=== PATIENT | female | born 2000 | race Caucasian/White ===

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

== ENCOUNTER 2018-01-05 11:57 | Emergency (ER) | payer MEDICAID ==
[~2018-01-05] VITALS: Ht 152.4 cm; Wt 78.9 kg
[2018-01-05 12:23] VITALS: BP 133/74
--- NOTE | 2018-01-05 12:30 | NUR ---
patient to lobby awaiting available room
--- NOTE | 2018-01-05 14:05 | NUR ---
PT AMBULATED TO BED 5. IN GOWN AND WAITING IN ROOM FOR
--- NOTE | 2018-01-05 14:08 | NUR ---
17/F with c/o suprapubic pain radiating to bl lower back x last night. Patient sts she is 15 weeks . LMP 08/14/17. . Patient also report of dysuria. Patient denies any vaginal bleeding. Patient had ultrasound done approx 4 wks ago. DENIES V/D; SKIN IS PINK/WARM/DRY; AAOX4 WITH EVEN AND STEADY GAIT; LUNGS CLEAR BL; PT DENIES ANY FEVER, CP, SOB, OR COUGH AT THIS TIME; PATIENT STATES PAIN OF 7/10 AT THIS TIME. PATIENT POSITIONED FOR COMFORT; HOB ELEVATED; BEDRAILS UP X2; BED DOWN. ER MD MADE AWARE OF PT STATUS.
[2018-01-05 15:38] LABS: BASOPHILS # (AUTO) 0.1 K/uL (0.00-0.22); BASOPHILS % (AUTO) 0.4 % (0.0-2.0); EOSINOPHILS # (AUTO) 0.1 K/uL (0-0.4); EOSINOPHILS % (AUTO) 0.5 % (0.0-4.0); HEMATOCRIT 34.8 % (36-48); HEMOGLOBIN 11.9 g/dL (12.0-16.0); LYMPHOCYTES # (AUTO) 2.7 K/uL (2.5-16.5); LYMPHOCYTES % (AUTO) 21.1 % (20.5-51.1); MEAN CORPUSCULAR HEMOGLOBIN 31 pg (27-31); MEAN CORPUSCULAR HGB CONC 34 g/dL (33-37); MEAN CORPUSCULAR VOLUME 89.5 fL (80-94); MONOCYTES # (AUTO) 1.1 K/uL (0.8-1.0); MONOCYTES % (AUTO) 8.8 % (1.7-9.3); NEUTROPHILS # (AUTO) 8.8 K/uL (1.8-7.7); NEUTROPHILS % (AUTO) 69.2 % (42.2-75.2); PLATELET COUNT (AUTO) 196 K/uL (140-450); RED BLOOD CELL COUNT(AUTO) 3.89 MIL/uL (4.20-5.40); RED CELL DISTRIBUTION WIDTH 13.3 % (11.6-13.7); WHITE BLOOD COUNT (AUTO) 12.8 K/uL (4.5-11.0)
--- NOTE | 2018-01-05 16:17 | NUR ---
Patient appears to be resting comfortably in bed. Vital Signs within normal limits. Respirations even and unlabored.WILL CONTINUE TO MONITOR.
--- NOTE | 2018-01-05 16:17 | NUR ---
FAMILY AT BEDSIDE.
[2018-01-05 16:22] LABS: APPEARANCE,URINE HAZY (CLEAR); COLOR,URINE YELLOW (YELLOW)
[2018-01-05 16:23] LABS: BILIRUBIN,URINE NEGATIVE (NEGATIVE); BLOOD, URINE NEGATIVE (NEGATIVE); LEUKOCYTE ESTERASE ,URINE TRACE (NEGATIVE); NITRITE, URINE NEGATIVE (NEGATIVE); UGLUCOSE NEGATIVE (NEGATIVE)
[2018-01-05 16:33] LABS: RBC,URINE NONE SEEN /HPF (0-5); URINE AMORPHOUS URATE 2+ /HPF (None Seen); WBC,URINE 0-5 (RARE) /HPF (0-5)
[2018-01-05 16:38] VITALS: BP 105/57
== END 2018-01-05 16:38 | disposition home or self-care (01) ==
LOC: MED 11:57
DX: O26.892 Other specified pregnancy related conditions, second trimester (principal); R10.30 Lower abdominal pain, unspecified; Z3A.17 17 weeks gestation of pregnancy
CPT/HCPCS: 36415; 76805; 81001; 81025; 84702; 85025; 86900; 86901; 99285

== ENCOUNTER 2019-10-11 12:50 | Emergency (ER) | payer MEDICAID, OTHER ==
[~2019-10-11] VITALS: Ht 156.2 cm; Wt 89.5 kg
[2019-10-11 12:56] VITALS: BP 119/86
--- NOTE | 2019-10-11 13:11 | NUR ---
O INTERMITENT LEFT LOWER ABMINAL CRAMPING & VAGINAL BLEEDING X YESTERDAY. LMP 07/22/19.PT AWAKE , ALERT , AFIBRILE , AMBULATORY WITH STEADY GAIT. PINK PALPEBRAL CONJUNCTIVAE , ANICTERIC SCLERA, SCE , CBS , ROUND SOFT NABS NONTENDER ABDOMEN. MED HX: DENIES
--- NOTE | 2019-10-11 13:14 | NUR ---
PT COMFORTABLE IN BED , AWAKE , ALERT , SIDE RAILS UP X 1 AND LOCK.
--- NOTE | 2019-10-11 13:15 | NUR ---
DR LIMON AT BEDSIDE EVALUATING PT.
[2019-10-11 13:53] LABS: BASOPHILS % (AUTO) 0.4 % (0.0-2.0); EOSINOPHILS # (AUTO) 0.1 K/uL (0-0.4); EOSINOPHILS % (AUTO) 0.6 % (0.0-4.0); HEMATOCRIT 39.1 % (36-48); HEMOGLOBIN 12.9 g/dL (12.0-16.0); LYMPHOCYTES # (AUTO) 2.5 K/uL (2.5-16.5); LYMPHOCYTES % (AUTO) 30.3 % (20.5-51.1); MEAN CORPUSCULAR HEMOGLOBIN 30 pg (27-31); MEAN CORPUSCULAR HGB CONC 33 g/dL (33-37); MONOCYTES # (AUTO) 0.5 K/uL (0.8-1.0); MONOCYTES % (AUTO) 6.2 % (1.7-9.3); NEUTROPHILS # (AUTO) 5.2 K/uL (1.8-7.7); NEUTROPHILS % (AUTO) 62.5 % (42.2-75.2); PLATELET COUNT (AUTO) 201 K/uL (140-450); RED BLOOD CELL COUNT(AUTO) 4.34 MIL/uL (4.20-5.40); RED CELL DISTRIBUTION WIDTH 14.5 % (11.6-13.7); WHITE BLOOD COUNT (AUTO) 8.3 K/uL (4.8-10.8)
--- NOTE | 2019-10-11 14:20 | NUR ---
DR LIMON AT BEDSIDE REEVALUATING PT.
[2019-10-11 14:27] LABS: ALBUMIN 3.3 g/dL (3.4-5.0); ANION GAP 9.5 (8-16); CARBON DIOXIDE 28.9 mmol/L (21-32); CREATININE 0.8 mg/dL (0.6-1.3); POTASSIUM 4.4 mmol/L (3.5-5.1); TOTAL BILIRUBIN 0.3 mg/dL (0.0-1.0)
[2019-10-11 14:57] VITALS: BP 121/78
== END 2019-10-11 14:56 | disposition home or self-care (01) ==
LOC: MED 12:50
DX: N92.0 Excessive and frequent menstruation with regular cycle (principal)
CPT/HCPCS: 36415; 76856; 80053; 81025; 84702; 85025; 93976; 99284; Q0092

== ENCOUNTER 2020-09-19 05:34 | Day surgery (SDC) | payer OTHER, SELFPAY ==
[~2020-09-19] VITALS: Ht 152.4 cm; Wt 90.7 kg
[2020-09-19] MEDS ORDERED: BUPIVACAINE-MPF 0.25% 30 ML VIAL INJ ONE (07:10)
[2020-09-19] MEDS ORDERED: KETOROLAC 30 MG/ML VIAL ONE (07:26)
[2020-09-19] MEDS ORDERED: SEVOFLURANE 250 ML BTL INH ONE (07:26)
[2020-09-19] MEDS ORDERED: LIDOCAINE 2% 100 MG/5 ML SYR IVP ONE (07:26)
[2020-09-19] MEDS ORDERED: ONDANSETRON 4 MG/2 ML VIAL ONE (07:26)
[2020-09-19] MEDS ORDERED: GLYCOPYRROLATE 0.2 MG/ML VIAL ONE (07:26)
[2020-09-19] MEDS ORDERED: SUCCINYLCHOLINE CHLORIDE 200 MG/10 ML VIAL IVP ONE (07:26)
[2020-09-19] MEDS ORDERED: NEOSTIGMINE 1:1000 10 MG/10 ML VIAL ONE (07:26)
[2020-09-19] MEDS ORDERED: ROCURONIUM 50 MG/5 ML VIAL IV ONE (07:26)
[2020-09-19] MEDS ORDERED: fentaNYL citrate 0.05 MG/ML VIAL ONE (07:26)
[2020-09-19] MEDS ORDERED: PROPOFOL 200 MG/20 ML VIAL IV ONE (07:26)
[2020-09-19] MEDS ORDERED: DEXAMETHASONE 4 MG/ML VIAL ONE (07:26)
[2020-09-19] MEDS ORDERED: METOCLOPRAMIDE 10 MG/2 ML INJ VIAL ONE (07:26)
[2020-09-19] MEDS ORDERED: LACTATED RINGERS 1,000 ML IV SCH (08:10)
[2020-09-19] MEDS ORDERED: MEPERIDINE 25 MG/ML SYR IVP PRN (08:10)
[2020-09-19] MEDS ORDERED: ONDANSETRON 4 MG/2 ML VIAL IVP PRN (08:10)
[2020-09-19] MEDS ORDERED: diphenhydrAMINE 50 MG/ML VIAL IVP PRN (08:10)
[2020-09-19] MEDS ORDERED: fentaNYL citrate 0.05 MG/ML VIAL IVP PRN (08:10)
[2020-09-19] MEDS ORDERED: HYDROcodone/APAP 5/325 MG 1 TAB TAB PO PRN (08:10)
== END 2020-09-19 10:51 | disposition home or self-care (01) ==
LOC: MDS 05:34 → MMU 06:22 → MDS 10:51
PROVIDERS: ATTEND Obstetrics & Gynecology
DX: N80.0 Endometriosis of uterus (principal); Z20.828 Contact with and (suspected) exposure to other viral communicable diseases
CPT/HCPCS: 36415; 58662; 81025; 82374; 86886; 86900; 86901; J0330; J1100; J1885; J2001; J2175; J2405; J2704; J2710; J2765; J3010; J3490; J7120; U0003

== ENCOUNTER 2022-02-03 16:06 | Emergency (ER) | payer OTHER ==
[~2022-02-03] VITALS: Ht 154.9 cm; Wt 89.8 kg
[2022-02-03 16:31] VITALS: BP 133/82
[2022-02-03] MEDS ORDERED: KETOROLAC 30 MG/ML VIAL IM ONE (17:00)
[2022-02-03] MEDS ORDERED: MORPHINE SULFATE 2 MG/ML SYR IM STA (17:00)
--- NOTE | 2022-02-03 17:05 | NUR ---
lab at bedside
[2022-02-03 17:14] LABS: BASOPHILS % (AUTO) 0.2 % (0.0-2.0); EOSINOPHILS # (AUTO) 0.1 K/uL (0-0.4); EOSINOPHILS % (AUTO) 0.8 % (0.0-4.0); HEMATOCRIT 38.7 % (36-48); HEMOGLOBIN 12.7 g/dL (12.0-16.0); LYMPHOCYTES # (AUTO) 2.6 K/uL (2.5-16.5); LYMPHOCYTES % (AUTO) 21.4 % (20.5-51.1); MEAN CORPUSCULAR HEMOGLOBIN 29 pg (27-31); MEAN CORPUSCULAR HGB CONC 33 g/dL (33-37); MONOCYTES % (AUTO) 8.2 % (1.7-9.3); NEUTROPHILS # (AUTO) 8.4 K/uL (1.8-7.7); NEUTROPHILS % (AUTO) 69.4 % (42.2-75.2); PLATELET COUNT (AUTO) 236 K/uL (140-450); RED BLOOD CELL COUNT(AUTO) 4.35 MIL/uL (4.20-5.40); RED CELL DISTRIBUTION WIDTH 13.7 % (11.6-13.7); WHITE BLOOD COUNT (AUTO) 12.1 K/uL (4.8-10.8)
[2022-02-03 17:28] LABS: ALBUMIN 3.5 g/dL (3.4-5.0); ANION GAP 11.2 (8-16); CARBON DIOXIDE 25.4 mmol/L (21-32); CREATININE 0.8 mg/dL (0.6-1.3); POTASSIUM 3.6 mmol/L (3.5-5.1); TOTAL BILIRUBIN 0.2 mg/dL (0.0-1.0)
--- NOTE | 2022-02-03 17:30 | NUR ---
22 y/o female c/o vaginal bleeding x 3 days, saturating 1 pad every 2 hours. Denies injury or trauma. Pelvic pain rated at 9/10, radiates to lower back, x last night. Took tylenol without relief. Pt reports history of PCOS and Endometriosis for which she was prescribed Megestrol 40mg 1+ year ago and has taken on and off x 1 year and consistently last 3 weeks. States LMP in October 2021. Denies fever, chills, NVD, dysuria, blood in stool.
[2022-02-03] MEDS ORDERED: ACET-8386 PO ×2 (18:45→18:47)
[2022-02-03] MEDS ORDERED: IBUP-1842 PO (18:45)
[2022-02-03] MEDS ORDERED: NITR100C7 PO (18:50)
[2022-02-03 19:15] VITALS: BP 131/65
--- NOTE | 2022-02-03 19:15 | NUR ---
Patient discharged with v/s stable. Written and verbal after care instructions about Dysmenorrhea given and explained. Patient alert, oriented and verbalized understanding of instructions. Ambulatory with steady gait. All questions addressed prior to discharge. ID band removed. Patient advised to follow up with PMD. Rx of [place], Macrobid, Motrin given. Patient educated on indication of medication including possible reaction and side effects. Opportunity to ask questions provided and answered.
== END 2022-02-03 19:15 | disposition home or self-care (01) ==
LOC: MED 16:06
DX: N94.6 Dysmenorrhea, unspecified (principal); N80.9 Endometriosis, unspecified; N92.0 Excessive and frequent menstruation with regular cycle
CPT/HCPCS: 36415; 80053; 81002; 81025; 85025; 96372; 99284; J1885; J2270

== ENCOUNTER 2023-02-24 21:23 | Emergency (ER) | payer OTHER ==
[~2023-02-24] VITALS: Ht 154.9 cm; Wt 81.6 kg
[~2023-02-24 21:23] MED LIST: ACET-8905 PO; IBUP-1842 PO; NITR100C7 PO
[2023-02-24 22:06] VITALS: BP 117/77; PULSE 59; RESP 20; TEMP 98; O2SAT 97
[2023-02-24 23:09] LABS: BASOPHILS # (AUTO) 0.1 K/uL (0.00-0.22); BASOPHILS % (AUTO) 0.7 % (0.0-2.0); EOSINOPHILS # (AUTO) 0.3 K/uL (0-0.4); EOSINOPHILS % (AUTO) 2.2 % (0.0-4.0); HEMATOCRIT 38.8 % (36-48); HEMOGLOBIN 13.1 g/dL (12.0-16.0); LYMPHOCYTES # (AUTO) 2.2 K/uL (2.5-16.5); LYMPHOCYTES % (AUTO) 17.4 % (20.5-51.1); MEAN CORPUSCULAR HEMOGLOBIN 30 pg (27-31); MEAN CORPUSCULAR HGB CONC 34 g/dL (33-37); MONOCYTES # (AUTO) 0.8 K/uL (0.8-1.0); MONOCYTES % (AUTO) 6.2 % (1.7-9.3); NEUTROPHILS # (AUTO) 9.5 K/uL (1.8-7.7); NEUTROPHILS % (AUTO) 73.5 % (42.2-75.2); PLATELET COUNT (AUTO) 212 K/uL (140-450); RED BLOOD CELL COUNT(AUTO) 4.41 MIL/uL (4.20-5.40); RED CELL DISTRIBUTION WIDTH 14.9 % (11.6-13.7); WHITE BLOOD COUNT (AUTO) 12.9 K/uL (4.8-10.8)
[2023-02-24 23:16] LABS: ALBUMIN 3.6 g/dL (3.4-5.0); ANION GAP 11.4 (8-16); CALCIUM 8.9 mg/dL (8.5-10.1); CARBON DIOXIDE 29.8 mmol/L (21-32); CREATININE 0.9 mg/dL (0.6-1.3); POTASSIUM 5.2 mmol/L (3.5-5.1); TOTAL BILIRUBIN 0.2 mg/dL (0.0-1.0)
[2023-02-25] MEDS ORDERED: PANTOPRAZOLE 40 MG TABEC PO ONE (01:35)
[2023-02-25] MEDS ORDERED: KETOROLAC 30 MG/ML VIAL IM ONE (01:35)
[2023-02-25] MEDS ORDERED: ONDANSETRON 4 MG ODT PO ONE (01:35)
[2023-02-25] MEDS ORDERED: DICYCLOMINE 10 MG CAP PO ONE (01:35)
[2023-02-25] MEDS ORDERED: IBUP-2213 PO (02:37)
[2023-02-25] MEDS ORDERED: ONDA-188 PO (02:37)
[2023-02-25] MEDS ORDERED: PANT40EC PO (02:37)
== END 2023-02-25 02:53 | disposition home or self-care (01) ==
LOC: MED 21:23
DX: R10.11 Right upper quadrant pain (principal); Z79.899 Other long term (current) drug therapy
CPT/HCPCS: 36415; 80053; 81025; 83690; 85025; 96372; 99284; J1885; Q0162

== ENCOUNTER 2023-04-15 02:39 | Emergency (ER) | payer OTHER ==
[~2023-04-15] VITALS: Ht 154.9 cm; Wt 85.3 kg
[~2023-04-15 02:39] MED LIST changes: +IBUP-2213 PO; +ONDA-188 PO; +PANT40EC PO
[2023-04-15 02:48] VITALS: BP 123/93; PULSE 64; RESP 18; TEMP 96.5; O2SAT 100
[2023-04-15] MEDS ORDERED: NACL 0.9% 1,000 ML IV ONE (03:05)
[2023-04-15] MEDS ORDERED: MORPHINE SULFATE 4 MG/ML SYR IVP ONE (03:05)
[2023-04-15 03:20] LABS: BASOPHILS % (AUTO) 0.4 % (0.0-2.0); EOSINOPHILS # (AUTO) 0.3 K/uL (0-0.4); EOSINOPHILS % (AUTO) 2.9 % (0.0-4.0); HEMATOCRIT 38.6 % (36-48); HEMOGLOBIN 12.9 g/dL (12.0-16.0); LYMPHOCYTES # (AUTO) 3.9 K/uL (2.5-16.5); LYMPHOCYTES % (AUTO) 35.7 % (20.5-51.1); MEAN CORPUSCULAR HEMOGLOBIN 30 pg (27-31); MEAN CORPUSCULAR HGB CONC 33 g/dL (33-37); MEAN CORPUSCULAR VOLUME 88.5 fL (80-94); MONOCYTES # (AUTO) 0.9 K/uL (0.8-1.0); MONOCYTES % (AUTO) 8.2 % (1.7-9.3); NEUTROPHILS # (AUTO) 5.7 K/uL (1.8-7.7); NEUTROPHILS % (AUTO) 52.8 % (42.2-75.2); PLATELET COUNT (AUTO) 224 K/uL (140-450); RED BLOOD CELL COUNT(AUTO) 4.36 MIL/uL (4.20-5.40); RED CELL DISTRIBUTION WIDTH 14.1 % (11.6-13.7); WHITE BLOOD COUNT (AUTO) 10.9 K/uL (4.8-10.8)
[2023-04-15 03:40] LABS: ALBUMIN 3.6 g/dL (3.4-5.0); ANION GAP 9.9 (8-16); CALCIUM 9.3 mg/dL (8.5-10.1); CARBON DIOXIDE 29.2 mmol/L (21-32); CREATININE 0.7 mg/dL (0.6-1.3); POTASSIUM 4.1 mmol/L (3.5-5.1); TOTAL BILIRUBIN 0.3 mg/dL (0.0-1.0); TOTAL PROTEIN, SERUM 7.9 g/dL (6.4-8.2)
[2023-04-15 03:41] VITALS: BP 116/72; PULSE 61; RESP 18; O2SAT 96
== END 2023-04-15 05:10 | disposition home or self-care (01) ==
LOC: MED 02:39
DX: K80.20 Calculus of gallbladder without cholecystitis without obstruction (principal); Z79.899 Other long term (current) drug therapy
CPT/HCPCS: 36415; 76700; 80053; 83690; 85025; 96361; 96374; 99285; J2270

== ENCOUNTER 2023-07-21 06:02 | Inpatient (IN) | payer OTHER ==
[~2023-07-21] VITALS: Ht 154.9 cm; Wt 90.0 kg
[2023-07-21] MEDS ORDERED: ceFAZolin 1,000 MG VIAL ONE ×2 (07:52→08:32)
[2023-07-21] MEDS ORDERED: BUPIVACAINE-MPF 0.25% 30 ML VIAL INJ ONE (07:52)
[2023-07-21] MEDS ORDERED: NEOSTIGMINE 1:1000 10 MG/10 ML VIAL ONE (07:55)
[2023-07-21] MEDS ORDERED: SEVOFLURANE 250 ML BTL INH ONE (07:55)
[2023-07-21] MEDS ORDERED: GLYCOPYRROLATE 0.2 MG/ML VIAL ONE (07:55)
[2023-07-21] MEDS ORDERED: MIDAZOLAM 2 MG/2 ML VIAL ONE (08:07)
[2023-07-21] MEDS ORDERED: HYDROmorphone PFS 2 MG/ML SYR ONE ×2 (08:09→10:33)
[2023-07-21] MEDS ORDERED: PROPOFOL 200 MG/20 ML VIAL IV ONE (08:11)
[2023-07-21] MEDS ORDERED: SUCCINYLCHOLINE CHLORIDE 200 MG/10 ML VIAL IVP ONE (08:11)
[2023-07-21] MEDS ORDERED: ROCURONIUM 50 MG/5 ML VIAL IV ONE (08:11)
[2023-07-21] MEDS ORDERED: LIDOCAINE 2% 100 MG/5 ML SYR IVP ONE (08:14)
[2023-07-21] MEDS ORDERED: DEXAMETHASONE 4 MG/ML VIAL ONE (08:31)
[2023-07-21] MEDS ORDERED: ONDANSETRON 4 MG/2 ML VIAL ONE (08:31)
[2023-07-21] MEDS ORDERED: LIDOCAINE/EPI 1% 1:100000 20 ML VIAL INJ ONE (09:33)
[2023-07-21] MEDS ORDERED: HYDROmorphone 1 MG/ML AMP IVP PRN (09:45)
[2023-07-21] MEDS ORDERED: ONDANSETRON 4 MG/2 ML VIAL IV PRN (09:45)
[2023-07-21] MEDS: DEXT 5% / NACL 0.45% 1,000 ML IV SCH (09:45)
[2023-07-21] MEDS ORDERED: ONDANSETRON 4 MG/2 ML VIAL IVP PRN (09:50)
[2023-07-21] MEDS ORDERED: ACET-8905 PO (09:53)
[2023-07-21] MEDS: HYDROmorphone 1 MG/ML AMP IVP PRN ×4 (10:35→11:05)
[2023-07-21 12:30] VITALS: BP 121/65; PULSE 78; RESP 18; TEMP 97; O2SAT 100
[2023-07-21 12:38] VITALS: PULSE 94; RESP 18
[2023-07-21] MEDS: MORPHINE SULFATE 2 MG/ML SYR IVP PRN ×2 (12:57→19:12)
[2023-07-21 16:10] VITALS: BP 109/69; PULSE 85; RESP 18; TEMP 97; O2SAT 100
[2023-07-21 20:01] VITALS: RESP 6; O2SAT 91
[2023-07-21] MEDS: MORPHINE SULFATE 4 MG/ML SYR IV PRN (22:58)
[2023-07-22] MEDS: DEXT 5% / NACL 0.45% 1,000 ML IV SCH (05:53)
[2023-07-22] MEDS: MORPHINE SULFATE 4 MG/ML SYR IV PRN (05:54)
[2023-07-22 06:08] LABS: BASOPHILS % (AUTO) 0.1 % (0.0-2.0); HEMATOCRIT 29.6 % (36-48); LYMPHOCYTES # (AUTO) 2.3 K/uL (2.5-16.5); LYMPHOCYTES % (AUTO) 16.7 % (20.5-51.1); MEAN CORPUSCULAR HEMOGLOBIN 30 pg (27-31); MEAN CORPUSCULAR HGB CONC 34 g/dL (33-37); MEAN CORPUSCULAR VOLUME 89.8 fL (80-94); MONOCYTES % (AUTO) 7.6 % (1.7-9.3); NEUTROPHILS # (AUTO) 10.3 K/uL (1.8-7.7); NEUTROPHILS % (AUTO) 75.6 % (42.2-75.2); PLATELET COUNT (AUTO) 263 K/uL (140-450); WHITE BLOOD COUNT (AUTO) 13.6 K/uL (4.8-10.8)
[2023-07-22 06:19] VITALS: PULSE 102
[2023-07-22 06:39] LABS: ALBUMIN 2.7 g/dL (3.4-5.0); ANION GAP 11.6 (8-16); CALCIUM 8.6 mg/dL (8.5-10.1); CARBON DIOXIDE 26.1 mmol/L (21-32); CREATININE 0.7 mg/dL (0.6-1.3); POTASSIUM 3.7 mmol/L (3.5-5.1); TOTAL BILIRUBIN 0.3 mg/dL (0.0-1.0); TOTAL PROTEIN, SERUM 7.4 g/dL (6.4-8.2)
[2023-07-22 08:00] VITALS: BP 97/57; PULSE 96; RESP 18; TEMP 98.4; O2SAT 95
[2023-07-22] MEDS ORDERED: ENOXAPARIN 40 MG/0.4 ML SYR SUBQ SCH (09:00)
== END 2023-07-22 10:55 | disposition home or self-care (01) | DRG 263 ==
LOC: MDS 06:02 → MMU 06:03 → MTU 09:43 → MDS 09:43 → MTU 12:20
PROVIDERS: ADMIT Surgery; ATTEND Surgery
PROC: 0DNU3ZZ Release Omentum, Percutaneous Approach (ICD-10-PCS; 2023-07-21)
PROC: 0FT44ZZ Resection of Gallbladder, Percutaneous Endoscopic Approach (ICD-10-PCS; principal; 2023-07-21 07:30)
DX: K80.10 Calculus of gallbladder with chronic cholecystitis without obstruction (principal); K66.0 Peritoneal adhesions (postprocedural) (postinfection)
CPT/HCPCS: 36415; 71045; 80053; 85025; 86886; 86900; 86901; 87081; 88304; 93005; C1887; J0330; J0690; J1100; J1170; J1650; J2001; J2250; J2270; J2405; J2704; J2710; J3490; J7030; J7060; J7120